=== PATIENT | male | born 1985 | race Caucasian/White ===

== ENCOUNTER → 2018-01-10 | Day surgery (SDC) | payer BC ==
[~2018-01-10] MED LIST: DEXAMETHASONE SOD PHOS 10MG/ML ONE; DEXL60CA6 PO; GLUCAGON 1 MG KIT IVP ONE; LIDOCAINE MPF 1% 5 ML VIAL ONE; LORazepam 2 MG/ML VIAL IVP ONE; NORMOSOL R SOLN(*) 1000 ML BAG 1,000 ML IV ONE; ONDANSETRON 4 MG/2 ML VIAL IVP ONE; PANT40TA65 PO; PROPOFOL EMUL(*) 10MG/ML 20 ML 20 ML ONE; RANI-320 PO; fentaNYL CITR 100 MCG/2 ML AMP ONE
[2018-01-10 21:01] VITALS: BP 124/76
--- NOTE | 2018-01-10 21:08 | ER Report ---
History and Physical Time Seen By MD: 21:07 Hx. of Stated Complaint: PATIENT HAS BEEN HAVING TROUBLE SWOLLOWING AND KEEPING THINGS DOWN SINCE 1800. PATIENT HAS TRIED EVERYTHING AT HOME, COKE, HE THROWS IT BACK UP. PATIENT HAS BEEN SEEN 4 TIMES IN THE PAST FOR SAME THING. PATIENT STATES THE GLUCAGON HAS WORKED IN PAST. HPI/ROS CHIEF COMPLAINT: Esophageal obstruction HISTORY OF PRESENT ILLNESS: 32-year-old male with 3 previous esophageal obstruction episodes. His last was in June of last year. He was taken to the OR here by Dr. Vleiz for disimpaction of food. Patient julio was eating a small piece of steak in his 1st bite his esophagus instructed. He's been vomiting for the last 2 hours been able to keep anything down, even his secretions. REVIEW OF SYSTEMS: Respiratory: No cough, no dyspnea. Cardiovascular: No chest pain, no palpitations. Gastrointestinal: As above Musculoskeletal: No back pain. Allergies: Coded Allergies: No Known Drug Allergies (Unverified , 01/10/18) Home Meds Active Scripts Pantoprazole Sodium (PANTOPRAZOLE SODIUM) 40 Mg Tablet., 40 MG PO QDAY, #30 TAB.SR 3 Refills Prov:SANTIAGO ASH MD 01/10/18 Reported Medications Ranitidine Hcl (RANITIDINE HCL) 300 Mg Tablet, 300 MG PO QDAY 01/10/18 Discontinued Reported Medications Dexlansoprazole (DEXILANT) 60 Mg Cap., 60 MG PO DAILY 07/02/15 Reviewed Nurses Notes: Yes Old Medical Records Reviewed: Yes Hx Smoking: No Hx Substance Use Disorder: No Hx Alcohol Use: Yes (OCC) Constitutional Vital Sign - Last 24 Hours 01/10/18 21:01 Temp 97.8 Pulse 74 Resp 16 B/P (MAP) 124/76 Pulse Ox 93 O2 Delivery Room Air Physical Exam General Appearance: The patient is alert, has no immediate need for airway protection and no current signs of toxicity. Mild distress HEENT: Pupils equal and round no injection. Oropharynx without redness or exudate, mucous. Membranes are moist, no foreign body noted Respiratory: Chest is non tender, lungs are clear to auscultation. No wheezing or rails Cardiac: regular rate and rhythm Gastrointestinal: Abdomen is soft and non tender, no masses, bowel sounds normal. Musculoskeletal: Neck: Neck is supple and non tender. Extremities have full range of motion and are non tender. Skin: No rashes or lesions. DIFFERENTIAL DIAGNOSIS: After history and physical exam differential diagnosis was considered for esophageal obstruction, esophageal foreign body, esophageal spasm, esophageal stricture Medical Decision Making ED Course/Re-evaluation Clinical Indication for ER IV: IV Access ED Course Patient was admitted to an examination room. H&P was done. The dental diagnoses was considered. On clinical examination, patient appears to have esophageal obstruction from a piece of steak. He ate. He is given glucagon and Ativan and monitored for an hour with no improvement. Neurosurgery was contacted to perform endoscopy and remove his obstruction. 01/10/2018 10:39:00 pm case discussed with Dr. Ash on-call general surgery. He will come see the patient. Decision to Disposition Date: January 10, 2018 Decision to Disposition Time: 21:26 Depart Departure Latest Vital Signs Vital Signs Date Time Temp Pulse Resp B/P (MAP) Pulse Ox O2 Delivery O2 Flow Rate FiO2 01/10/18 21:01 97.8 74 16 124/76 93 Room Air Impression: Primary Impression: Esophageal foreign body Additional Impressions: Dysphagia GERD (gastroesophageal reflux disease) Condition: Improved Disposition: ADMIT FROM ER TO OR New Scripts Pantoprazole Sodium (PANTOPRAZOLE SODIUM) 40 Mg Tablet.dr 40 MG PO QDAY, #30 TAB.SR 3 Refills Prov: SANTIAGO ASH MD 01/10/18 Problem Qualifiers Primary Impression: Esophageal foreign body Encounter type: initial encounter Qualified Codes: T18.108A - Unspecified foreign body in esophagus causing other injury, initial encounter Additional Impressions: Dysphagia Dysphagia type: unspecified Qualified Codes: R13.10 - Dysphagia, unspecified GERD (gastroesophageal reflux disease) Esophagitis presence: with esophagitis Qualified Codes: K21.0 - Gastro- esophageal reflux disease with esophagitis LYDIA FERNANDES DO January 10, 2018 21:08
--- NOTE | 2018-01-10 23:09 | General Surgery 1 H&P ---
History of Present Illness Chief Complaint cant swallow History of Present Illness 32 yo male with a history of esophageal reflux presents with a several hour history of being unable to swallow. he was eating steak. this happened in 2014 and he required and egd to clear esophagus. History Other Past Surgeries: egd Home Meds Reported Medications Ranitidine Hcl (RANITIDINE HCL) 300 Mg Tablet, 300 MG PO QDAY 01/10/18 Discontinued Reported Medications Dexlansoprazole (DEXILANT) 60 Mg , 60 MG PO DAILY 07/02/15 Allergies: Coded Allergies: No Known Drug Allergies (Unverified , 01/10/18) Review of Systems All Systems Reviewed/Normal: Yes Exam Vital Signs Date Time Temp Pulse Resp B/P (MAP) Pulse Ox O2 Delivery O2 Flow Rate FiO2 01/10/18 21:01 97.8 74 16 124/76 93 Room Air General Appearance: Alert, Awake, No Acute Distress GI: Abd Soft and Non-Tender Assessment and Plan Problems: (1) Esophageal foreign body Status: Acute Assessment & Plan: egd and removal of foreign body. Copies to: SANTIAGO ENAMORADO MD Venous Thromboembolism Antithrombotics Is Pt On Any Antithrombotics?: No Problem Qualifiers (1) Esophageal foreign body: Encounter type: initial encounter Qualified Codes: T18.108A - Unspecified foreign body in esophagus causing other injury, initial encounter SANTIAGO ENAMORADO MD January 10, 2018 23:09
--- NOTE | 2018-01-10 23:10 | Post Operative Progress Note ---
Post Operative Progress Note Date: January 10, 2018 Time: 23:27 Surgeon: charo Anesthesia: estela Pre-Op Diagnosis: esophageal obstruction for foreign body Post-Op Diagnosis: same Procedure(s): egd and removeal of foreign body SANTIAGO ENAMORADO MD January 10, 2018 23:10
--- NOTE | 2018-01-10 23:11 | Short(Outpt) Discharge Summary ---
Discharge Summary Reason for Hosp/Final Diag: (1) Esophageal foreign body Status: Acute Hospital Course & Plan: egd and removal of foreign body. foreign body removed Departure Discharge to: Home Discharge Instructions Home Meds Reported Medications Ranitidine Hcl (RANITIDINE HCL) 300 Mg Tablet, 300 MG PO QDAY 01/10/18 Discontinued Reported Medications Dexlansoprazole (DEXILANT) 60 Mg Chilo., 60 MG PO DAILY 07/02/15 Diet: Regular Activity: As Tolerated Problem Qualifiers (1) Esophageal foreign body: Encounter type: initial encounter Qualified Codes: T18.108A - Unspecified foreign body in esophagus causing other injury, initial encounter SANTIAGO ENAMORADO MD January 10, 2018 23:11
--- NOTE | 2018-01-11 04:15 | OPERATIVE REPORT 1 ---
EVENT DATE: January 10, 2018 SURGEON: Berny Ash MD ANESTHESIOLOGIST: Ben Szymanski MD ANESTHESIA: General. PREOPERATIVE DIAGNOSIS Esophageal obstruction secondary to a foreign body. POSTOPERATIVE DIAGNOSIS Esophageal obstruction secondary to a foreign body. PROCEDURE PERFORMED Esophagogastroduodenoscopy with removal of esophageal foreign body. DESCRIPTION OF PROCEDURE The patient was placed in supine position, given general anesthetic. Flexible gastroscope was inserted and advanced. The foreign body appeared to be a piece of food, meat, was wedged in the distal esophagus. I was unable to get the scope to go by it. We tried a foreign body retrieval basket. We could not get it to go by. We then took a piece of 36 chest tube, placed it over the end of the tube. We went down and applied suction to the foreign body and removed a large chunk. We were then able to pass the gastroscope into the stomach without difficulty. Stomach was empty. He had some fluid material in the duodenum, making complete visualization of the duodenum impossible. The pylorus was normal. Antrum was normal. Body of the stomach was normal. Scope was retroflexed. I could not identify any fundic lesions. GE junction was at 44 cm. It was raw from the foreign body being stuck there. Nothing to suggest a tumor. More proximal esophagus appeared to be normal. The patient tolerated the procedure well, no apparent complication. [id number]
== END ==
LOC: ER 21:09 → OR 22:42
PROVIDERS: ATTEND Surgery
DX: T18.128A Food in esophagus causing other injury, initial encounter (principal); R13.10 Dysphagia, unspecified; K21.0 Gastro-esophageal reflux disease with esophagitis
CPT/HCPCS: 43247; 99285; J1100; J1610; J2001; J2060; J2405; J2704; J3010